=== PATIENT | female | born 1955 | race Caucasian/White ===

== ENCOUNTER 2017-07-27 13:50 | Inpatient (IN) | payer MEDICARE ==
[~2017-07-27] VITALS: Ht 152.4 cm; Wt 40.9 kg
--- NOTE | ~2017-07-27 | PR ---
[place], [place] PROGRESS NOTE NAME: VERÓNICA LOZANO UNIT #: [id number] ROOM: 520 DOCTOR: TESFAYE REDDY MD BIRTHDATE: [birth year] DOS: SUBJECTIVE: The patient is doing fine without any complaints this morning. OBJECTIVE: VITAL SIGNS: Shows pressure 120/62, pulse of 88, respirations 20, temperature 97.6. LUNGS: Clear. HEART: Regular. ABDOMEN: Obese, soft. EXTREMITIES: Without any edema. LUNGS: With a few scattered rhonchi and wheezes still heard. ASSESSMENT AND PLAN: 1. Acute exacerbation of chronic obstructive pulmonary disease. There is definite improvement from yesterday. I appreciate Dr. Bejarano's input, may require a bronchoscopy tomorrow. 2. Acute tracheobronchitis, on antibiotics. Yesterday, she was quite hypoxic. Saturation was only 42 on an ABG. BiPAP was added and seems to have helped significantly. 3. Benign hypertension. Awaiting an echocardiogram for abdominal pain. The patient states that she coughed and developed some discomfort in the abdomen, was most likely musculoskeletal. I will start her on a heating pad. TESFAYE REDDY MD CM:PNTRANS [phone] TESFAYE REDDY MD 07/31/17 0858 interface
--- NOTE | ~2017-07-27 | PR ---
[place], [place] PROGRESS NOTE NAME: VERÓNICA LOZANO UNIT #: [id number] ROOM: 520 DOCTOR: MAXINE ROJAS DO BIRTHDATE: [birth year] DOS: 08/03/2017 SUBJECTIVE: The patient has been noted without any shortness of breath. The patient denies any fever, chills, nausea, vomiting or chest pain. The patient says that the mild wheezing has improved since yesterday. OBJECTIVE: VITAL SIGNS: Temperature 98.6, pulse 84, respiratory rate 20, blood pressure 137/84, pulse ox is 94% on room air. HEENT: Showed no changes. NECK: Supple. CARDIOVASCULAR: S1, S2 audible. LUNGS: Decreased breath sounds at the bases and mild expiratory wheeze, otherwise normal. ABDOMEN: Soft, flat, nontender. EXTREMITIES: No edema. ASSESSMENT: 1. Acute exacerbation of chronic obstructive pulmonary disease with acute tracheobronchitis. Symptoms of nonproductive cough has improved along with shortness of breath. 2. Status post bronchoscopy on 08/02/2017. PLAN: 1. The patient can be discharged to care home facility on Rocephin 1 gram IV every day and Solu-Medrol 40 mg IV b.i.d. 2. Continue supportive care. MAXINE ROJAS DO RHINA JORDAN MD CM:RESHMA [id number] MAXINE ROJAS DO 08/03/17 1302 interface
--- NOTE | ~2017-07-27 | PR ---
[place], [place] PROGRESS NOTE NAME: VERÓNICA LOZANO UNIT #: [id number] ROOM: 520 DOCTOR: TESFAYE REDDY MD BIRTHDATE: [birth year] DOS: SUBJECTIVE: The patient continues to have this incessant cough which is unable to stop and she is unable to bring up any sputum at all. OBJECTIVE: VITAL SIGNS: Graphic trend shows a pressure 135/68, pulse of 94, respirations 22, temperature 98.2. LUNGS: Diminished breath sounds. No wheezes heard this morning. HEART: Regular. ABDOMEN: Obese, soft, nontender. EXTREMITIES: Without any edema. CT of the chest showed emphysematous changes. There was no evidence of any infectious process or tumors. ASSESSMENT AND PLAN: 1. Acute exacerbation of chronic obstructive pulmonary disease. The patient continues to be short of breath, especially exertional, but surprisingly, the bronchospasm seems to have resolved today with the Pulmicort. 2. Acute tracheobronchitis. The patient is unable to cough up any sputum and is possibly from the dextromethorphan that she is getting, so we will change to plain ____ Mucinex. She also may require a bronchoscopy, so that Dr. Bejarano has been consulted. Otherwise, continue same medications. 3. Benign hypertension. Awaiting echocardiogram. Check LV function. TESFAYE REDDY MD CM:PNTRANS [phone] TESFAYE REDDY MD 07/31/17 1229 interface
--- NOTE | ~2017-07-27 | WRIGHTHP ---
[place], [place] PATIENT HISTORY AND PHYSICAL EXAM [id number] UN[facility] #: [id number] ROOM: 520 DOCTOR: ESE BARAHONA MD BIRTHDATE: [birth year] DOS: 07/27/2017 HISTORY OF PRESENT ILLNESS: 1. The patient is a 62-year-old female with a past medical history of significant COPD with previous history of nicotine, smoke dependence. The patient stopped 2 years back. 2. Benign essential hypertension. 3. Hypothyroidism. 4. Mixed hyperlipidemia. 5. History of chronic lower back pains and back surgery. The patient presented to my office with a few days' complaints of increasing shortness of breath, cough with sputum, and wheezing. The patient appeared very weak in the office and 6-minute exercise pulse ox, although did not drop below 95% on pulse oximetry but she remained tachycardic at the heart rate of about 110 beats per minute and also appeared quite short of breath. The patient was admitted to [facility] for treatment of exacerbation of severe underlying chronic obstructive pulmonary disease. There were no complaints of any chest pains. No dizziness or fainting episodes. No other GI or urinary symptoms. REVIEW OF SYSTEMS: LUNGS: Increasing shortness of breath and wheezing. GASTROINTESTINAL: No nausea, vomiting, diarrhea or constipation. CARDIOVASCULAR: No chest pains or palpitations. FAMILY HISTORY: Noncontributory. HOME MEDICATIONS: Include lisinopril 10 mg a day, levothyroxine 50 mcg daily, gabapentin 300 mg 3 times a day, ibuprofen 600 mg every 8 hours as needed. ALLERGIES: Known allergies to SULFA. PHYSICAL EXAMINATION: GENERAL: Alert and oriented x 3, in no visible distress. VITAL SIGNS: Blood pressure 140/78, heart rate 88 beats per minute, breathing 22 times per minute, temperature 98.1 degrees Fahrenheit. HEENT AND NECK: Extraocular movements are intact. Sclerae are anicteric. Oral mucosa is moist and clean. No obvious facial weakness. Neck is supple without any lymphadenopathy. No thyromegaly. No JVD. No carotid arterial bruits. LUNGS: Decreased breath sounds all over and some expiratory wheezing. CARDIOVASCULAR SYSTEM: Heart rate is regular in rate and rhythm. S1 and S2 normally audible. No significant murmur or any other abnormal cardiac sounds. ABDOMEN: Soft, nontender. No obvious organomegaly. Bowel sounds are present. No obvious herniation. EXTREMITIES: Without significant cyanosis or edema. Warm to touch. CENTRAL NERVOUS SYSTEM: Alert and oriented x 3. Cranial nerves II-XII are intact. Speech is normal. The patient is able to move all extremities. Normal muscle strength. Deep tendon reflexes are equal on both sides. Plantars were downgoing. [place], [place] PATIENT HISTORY AND PHYSICAL EXAM NAME: VERÓNICA LOZANO UNIT #: [id number] ROOM: [facility] DOCTOR: ESE BARAHONA MD BIRTHDATE: [birth year] LABORATORY DATA: Normal serum electrolytes. Blood sugar is elevated to 142. Normal CBC except for some leukopenia with white cell count of 4200, normal platelets. Blood gases showed a pH of 7.4, pO2 of 92, saturating 98% on 2 liters of oxygen by nasal cannula. IMPRESSION: 1. The patient with exacerbation of severe underlying chronic obstructive pulmonary disease with acute over chronic respiratory failure. The patient is tachypneic with significant cough and also complains of significant pain in her ribs when coughing. I will start her on some pain medications, give her bronchodilators, corticosteroids, antibiotic and oxygen and get a chest x-ray. 2. Hypothyroidism for which patient continued on thyroid supplements. 3. Benign essential hypertension with controlled blood pressures with treatment. 4. Postherpetic neuralgia with chronic pains, treated with gabapentin. ESE BARAHONA MD CM:HISPHYS:PATIENT HISTORY AND PHYSICAL EXAMINATION [id number] ESE BARAHONA MD 07/28/17 1325 interface
--- NOTE | ~2017-07-27 | PR ---
[place], [place] PROGRESS NOTE NAME: VERÓNICA LOZANO UNIT #: [id number] ROOM: 520 DOCTOR: TESFAYE REDDY MD BIRTHDATE: [birth year] DOS: SUBJECTIVE: The patient was getting a breathing treatment when I saw her. She had almost finished it, appeared to have quite lot of shortness of breath. PHYSICAL EXAMINATION: VITAL SIGNS: Blood pressure is 144/72, pulse of 79, respirations 20 and temperature 96.7. LUNGS: Diminished breath sounds, scattered rhonchi heard. HEART: Regular. ABDOMEN: Obese, soft, nontender. EXTREMITIES: Without any edema. ASSESSMENT AND PLAN: 1. Acute exacerbation of chronic obstructive pulmonary disease, on intravenous steroids and breathing treatments, maximize bronchodilator regimen, add Pulmicort today. Also, check chest CT scan. 2. Acute tracheobronchitis, on antibiotics intravenous. 3. Heavy nicotine abuse. The patient has been a smoker for close to 50 years. 4. Chronic pain from postherpetic neuralgia, controlled on the current dose of medications. TESFAYE REDDY MD CM:PNTRANS [phone] TESFAYE REDDY MD 07/30/17229 interface
--- NOTE | ~2017-07-27 | PR ---
[place], [place] PROGRESS NOTE NAME: VERÓNICA LOZANO UNIT #: [id number] ROOM: 520 DOCTOR: NIKKI GLORIA MD,RHINA BIRTHDATE: [birth year] DOS: 08/01/2017 PULMONARY FOLLOWUP SUBJECTIVE: She has been noted chest symptoms with shortness of breath. The coughing has been noted nonproductive. Wheezing was also noted partially decreased. She denies symptoms of chest pain or any abdominal pain. Denies any ____ of the lower extremity. The patient has been using the BiPAP as advised. OBJECTIVE: VITAL SIGNS: Normal temperature, respiratory rate 20, heart rate 82, blood pressure 118/70 this morning. Pulse ox saturation 98% with 3 liters nasal cannula or BiPAP. HEENT: Showed no new change. NECK: Supple. CARDIOVASCULAR: S1, S2 audible. LUNGS: General reduction in the breath sounds with moderate expiratory wheezing, partially decreased from previous examination. ABDOMEN: Soft, flat, nontender. EXTREMITIES: Shows no edema. IMPRESSION: The patient with acute exacerbation of chronic obstructive pulmonary disease with acute tracheobronchitis, persistent symptoms of nonproductive cough for the patient's with shortness of breath, partially improved since hospitalization. PLAN OF TREATMENT: The patient has been assessed for therapeutic bronchoscopy. Plan to be done tomorrow morning. Risks and benefits of the procedure were discussed with the patient and she was agreeable for the procedure. N.p.o. past midnight status will be achieved. RHINA JORDAN MD CM:PNTRANS [phone] RHINA GLORIA MD 08/01/17 1547 interface
--- NOTE | ~2017-07-27 | PR ---
[place], [place] PROGRESS NOTE NAME: VERÓNICA LOZANO UNIT #: [id number] ROOM: 520 DOCTOR: NIKKI GLORIA MD,RHINA BIRTHDATE: [birth year] DOS: 08/02/2017 SUBJECTIVE: The patient was independently seen and examined with [id number] encounter. The physical examination performed. The labs were reviewed. The decision made for the management of this patient were personally done for today's visit. The patient was planned for bronchoscopy done today, still noted with coughing which has remained severe and nonproductive. Shortness of breath and wheezing has been noted, decreased in the last 24 hours. PHYSICAL EXAMINATION: VITAL SIGNS: Reviewed, shows a normal temperature, respiratory rate 20, heart rate 71, blood pressure 123/74. Pulse oxygen saturation was noted on room air is 94% saturation. LUNGS: Noted with general reduction in breath sounds, expiratory wheezing without any crackles. ABDOMEN: Soft, nontender. LABORATORY DATA: Culture of the sputum from yesterday shows a growth of ____ identification and sensitivity, results were pending. IMPRESSION: The patient with acute exacerbation of chronic obstructive pulmonary disease with acute tracheobronchitis, severe nonproductive cough, suspected mucus impaction. PLAN OF TREATMENT: He will be getting bronchoscopy done today. The note which was done by the medical services manager for today's visit was approved as well. RHINA JORDAN MD CM:PNTRANS [phone] RHINA GLORIA MD 08/03/17100 interface
--- NOTE | ~2017-07-27 | PR ---
[place], [place] PROGRESS NOTE NAME: VERÓNICA LOZANO UNIT #: [id number] ROOM: 520 DOCTOR: ESE BARAHONA MD BIRTHDATE: [birth year] DOS: 08/01/2017 SUBJECTIVE: The patient is still short of breath and wheezing despite of treatment with antibiotics and corticosteroids. PHYSICAL EXAMINATION: GENERAL APPEARANCE: The patient is alert and oriented x 3, in no visible distress. VITAL SIGNS: Blood pressure 125/56, heart rate 80 beats per minute, breathing 20 times per minute, temperature 98.1 degrees Fahrenheit. HEENT AND NECK: Exam within normal limits. CARDIOVASCULAR SYSTEM: Heart rate is regular in rate and rhythm. S1 and S2 normally audible. LUNGS: Showing decreased breath sounds and expiratory wheezing. ABDOMEN: Soft, nontender. No obvious organomegaly. Bowel sounds are present. EXTREMITIES: Without significant cyanosis or edema. IMPRESSION: 1. Exacerbation of severe underlying chronic obstructive pulmonary disease with wheezing and shortness of breath, is going for a bronchoscopy with Dr. Bejarano tomorrow. 2. Benign essential hypertension with controlled blood pressures. 3. Hypothyroidism, treated with supplements. 4. Benign essential hypertension with controlled blood pressures. 5. Postherpetic neuralgia of the right lower rib pains, treated with gabapentin. ESE BARAHONA MD CM:PNTRANS [phone] ESE BARAHONA MD 08/01/17 2343 interface
--- NOTE | ~2017-07-27 | CON ---
[place], [place] REPORT OF CONSULTATION NAME: VERÓNICA LOZANO UNIT #: [id number] ROOM: 520 DOCTOR: RHINA GUERRIER MD BIRTHDATE: [birth year] DOS: 07/30/2017 PULMONARY CONSULTATION EVALUATION CONSULTATION REQUESTED BY: Dr. Nikki Freitas. REASON FOR CONSULTATION: For the assessment of ongoing symptoms of shortness breath and cough, for possible consideration of bronchoscopy. HISTORY OF PRESENT ILLNESS: This is a 62-year-old female who has been admitted to the hospital under care of Dr. Nikki Freitas since 07/27/2017. The patient reported symptoms of increased shortness of breath that has started with coughing with sputum expectoration and wheezing. She denies symptoms of chest pain. The patient denies symptoms of hemoptysis. The patient was still noted with ongoing shortness of breath and cough has been noted, nonproductive. She does have symptoms of wheezing at times. She has been currently treated for the acute exacerbation of COPD under care of Dr. Nikki Freitas. The patient has not been showing any positive improvement of respiratory symptoms. I was consulted to assess the patient for that reason. REVIEW OF SYSTEMS: CONSTITUTIONAL: Fatigue and tiredness were noted without symptoms of fever or chills. EYES: Denies any burning, redness, or tenderness. EARS, NOSE, THROAT: No sore throat, hoarseness, otalgia, postnasal drainage or epistaxis. CARDIOVASCULAR: Denies anginal pain, edema or pain of the lower extremities. GASTROINTESTINAL: Denies dysphagia, nausea, vomiting, diarrhea, abdominal pain, hematemesis, melena, or hematochezia. SKIN: Denies lesions or rashes. GENITOURINARY: No dysuria, suprapubic pain, hematuria. MUSCULOSKELETAL: Denies acute joint pain, redness, or tenderness. SKIN: No lesions or rashes. CENTRAL NERVOUS SYSTEM: Remaining systems were reviewed with the patient, they were noted all negative. PAST MEDICAL HISTORY: The patient was known with history of: 1. COPD. 2. Essential hypertension. 3. Hypothyroidism. 4. Mixed hyperlipidemia. 5. Chronic lower back pain. SOCIAL HISTORY: The patient stated that she is and has 2 children. Smoking since teens, a pack of cigarettes per day until 2014. Denies any history of occupation-related pulmonary exposure. Denies history of alcohol or illicit drug use. PAST SURGICAL HISTORY: 1. Partial hysterectomy. [place], [place] REPORT OF CONSULTATION NAME: VERÓNICA LOZANO UNIT #: [id number] ROOM: [facility] DOCTOR: RHINA GUERRIER MD BIRTHDATE: [birth year] 2. Surgery of the lower back and the neck. FAMILY HISTORY: Father at 64 years old, complications of myocardial infarction. Mother at the age of 62 years, complications of myocardial infarction as well. HOME MEDICATIONS: 1. Lisinopril 20 mg daily. 2. Citalopram 40 mg daily. 3. Norvasc 10 mg daily. 4. Amitriptyline 50 mg at bedtime. 5. Synthroid 50 mcg daily. 6. Protonix 40 mg daily. 7. Synthroid 50 mcg p.o. daily. 8. Neurontin 300 mg p.o. q. 8 hours. 9. Lyrica 50 mg p.o. b.i.d. DRUG ALLERGY HISTORY: ALLERGY TO SULFA DRUGS. PHYSICAL EXAMINATION: GENERAL: A 62-year-old female who has been currently noted without any acute distress, noted with mild shortness of breath at rest. Height was noted as 5 feet, weight of 90 pounds, BMI 17.6. VITAL SIGNS: Shows normal temperature since admission. Respiratory rate ranging between 20-24, heart rate 80-107, blood pressure 126/78 to 153/81. Pulse oxygen saturation noted on room air 93% saturation. HEENT: Shows head was atraumatic. Eyes: No icterus. NECK: Supple. CARDIOVASCULAR: S1, S2 is audible. LUNGS: The patient was noted without any crackles. Expiratory wheezing was present. ABDOMEN: Soft, nontender. EXTREMITIES: The patient was noted without any edema, clubbing or cyanosis. CENTRAL NERVOUS SYSTEM: The patient was noted without any focal deficit. DIAGNOSTIC AND LABORATORY DATA: The CT scan of the chest that was done without contrast was noted with finding of centrilobular emphysema with hyperinflation without any acute pulmonary infiltration or any abnormal pulmonary nodules. The chest x-ray that was done on 07/28/2017 was essentially noted with similar finding hyperinflation of COPD. BMP on 07/28/2017, glucose 142. BUN and creatinine of the labs were normal. CBC on 07/28/2017, WBC count 4.2; remaining CBC was normal. Arterial blood gas with 2 liters canula on admission pH of 7.42, pCO2 of 40, pO2 of 92.0. IMPRESSION: 1. The patient who has been currently admitted to the hospital noted with symptoms and findings of acute exacerbation of chronic obstructive pulmonary disease, acute tracheobronchitis, inability to expectorate sputum effectively, still noted with shortness of breath. 2. Past history of nicotine abuse until 2 years ago. [place], [place] REPORT OF CONSULTATION NAME: VERÓNICA LOZANO UNIT #: [id number] ROOM: [facility] DOCTOR: NIKKI GLORIA MD,RHINA BIRTHDATE: [birth year] 3. Acute bacterial bronchitis, treated with antibiotics. PLAN OF TREATMENT: The patient has been getting the Mucinex and noted nonproductive cough with still noted short of breath. The changes in the Solu-Medrol will be done including Solu-Medrol dose to 40 mg q. 6 hours initially and then gradual reduction. Once the patient's overall respiratory status stabilizes, certainly bronchoscopy will be considered. Flutter valve will be added to help expectorate the sputum. We did send sputum for Gram stain and culture as well. Additional treatment changes will be done based on the progression of the illness. Obtain another arterial blood gas because of mild resting distress. We will reassess the patient's oxygenation in the ventilatory status. Anxiolytic will be added to the treatment as well. Thanks for allowing me to participate in the care of this patient. RHINA JORDAN MD CM:CONSTR:REPORT OF CONSULTATION 1432 07/31/17 1411 interface
--- NOTE | ~2017-07-27 | PROC NOTE ---
[place], [place] PROCEDURE NOTE NAME: VERÓNICA LOZANO UNIT #: [id number] ROOM: [facility] DOCTOR: NIKKI GLORIA MD,RHINA BIRTHDATE: [birth year] DOS: 08/02/2017 PREOPERATIVE DIAGNOSES: Persistent severe nonresolving cough, maximal medical therapy with wheezing intermittently as well. POSTOPERATIVE DIAGNOSIS: Severe impaction and mucus plug cleared from endobronchial tree bilaterally. FINDINGS: 1. Acute tracheobronchitis. 2. No endobronchial obstructive lesions. COMPLICATIONS: None. BLOOD LOSS: None. PROCEDURE DESCRIPTION: Informed consent obtained from the patient. The patient was brought to the OR and placed in supine position. Conscious sedation was administered by the Anesthesia Department. After achieving appropriate sedation, airway introduced into the mouth. Bronchoscope advanced into the airway into laryngeal area. Epiglottis and vocal cords were seen. Vocal cords were moving symmetrically with the movements. Bronchoscope advanced through vocal cord and tracheal lumen. Tracheal lumen was identified and noted with moderate amount of thick mucoid secretion, suctioned out with the help of normal saline wash without difficulty. All the secretions suctioned out with the help of normal saline wash for this patient. Right upper, right middle, right lower, left upper, and lingular lower lobe bronchi were all examined. All the secretions were cleared out with the removal of the mucus plug using normal saline. The procedure was well tolerated by the patient. Postoperative findings will be discussed with the patient once the patient recovers the effects of acute sedation. RHINA JORDAN MD CM:PROCNOTE:PROCEDURE NOTE [phone] RHINA GLORIA MD
--- NOTE | ~2017-07-27 | PR ---
[place], [place] PROGRESS NOTE NAME: VERÓNICA LOZANO UNIT #: [id number] ROOM: 520 DOCTOR: MAXINE ROJAS DO BIRTHDATE: [birth year] DOS: 08/02/2017 This is a pulmonary service for Dr. Bejarano. SUBJECTIVE: The patient has been noted without any shortness of breath. The patient has been having dry cough, nonproductive. There is mild wheezing, which has been improved since yesterday. The patient denies any current complaints. OBJECTIVE: VITAL SIGNS: Normal temperature, respiratory rate 20, heart rate of 76, blood pressure of 130/53, pulse ox of 98% on 3 liters nasal cannula or BiPAP. HEENT: Showed no changes. NECK: Supple. CARDIOVASCULAR: S1, S2 audible. LUNGS: Sound general reduction in breath sounds with mild expiratory wheeze, partially decreased from previous examination. ABDOMEN: Soft, flat, nontender. EXTREMITIES: Show no edema. IMPRESSION: Acute exacerbation of chronic obstructive pulmonary disease with acute tracheobronchitis, persistent symptoms of nonproductive cough for patient with shortness of breath, partially improved since hospitalization. PLAN OF TREATMENT: 1. Bronchoscopy today showed mucus plug and tracheobronchitis. 2. Continue ceftriaxone 1 gram every day, Solu-Medrol and DuoNeb treatments, continue Pulmicort q. 12 hours and Mucinex supportive care. MAXINE ROJAS, RHINA BEJARANO MD CM:PNTRANS [id number] MAXINE ROJAS DO 08/02/17 1617 interface
--- NOTE | ~2017-07-27 | PR ---
[place], [place] PROGRESS NOTE NAME: VERÓNICA LOZANO UNIT #: [id number] ROOM: 520 DOCTOR: ESE BARAHONA MD BIRTHDATE: [birth year] DOS: 08/02/2017 The patient is breathing slightly better after bronchoscopy but still complains of wheezing. VITAL SIGNS: Blood pressure 132/80, heart rate 94 beats per minute, breathing 25 times per minute. On lung auscultation, expiratory wheezing and on general physical exam, generalized weakness, otherwise, standard exam. IMPRESSION: 1. The patient with exacerbation of severe underlying chronic obstructive pulmonary disease with wheezing, underwent bronchoscopy this morning with removal of thick mucus secretions. I will refer to assisted for continued treatment. The patient appears to have achieved maximum benefit from the stay and ____ continues to follow the patient. 2. Benign essential hypertension with normal blood pressure. 3. Hypothyroidism treated with Synthroid. 4. Post herpetic neuralgia with right lower rib pains, controlled with gabapentin. ESE BARAHONA MD CM:PNTRANS [phone] ESE BARAHONA MD 08/02/17 2248 interface
--- NOTE | ~2017-07-27 | DS ---
[place], [place] DISCHARGE SUMMARY NAME: [facility]NICA [facility]ZANO [id number] UNIT #: [id number] ROOM: 520 DOCTOR: ESE BARAHONA MD BIRTHDATE: [birth year] DOS: 08/03/2017 The patient is feeling better, breathing better today. OBJECTIVE: VITAL SIGNS: Blood pressure 137/84, heart rate of 84 beats per minute, breathing 20 times per minute, afebrile. GENERAL APPEARANCE: The patient is alert and oriented x 3, in no visible distress. HEENT AND NECK: Extraocular movements are intact. Sclerae are anicteric. Oral mucosa is moist and clean. No obvious facial weakness. Neck is supple without any lymphadenopathy. No thyromegaly. No JVD. No carotid arterial bruits. LUNGS: Expiratory wheezing has improved on lung auscultation. CARDIOVASCULAR SYSTEM: Heart rate is regular in rate and rhythm. S1 and S2 normally audible. No significant murmur or any other abnormal cardiac sounds. ABDOMEN: Soft, nontender. No obvious organomegaly. Bowel sounds are present. No obvious herniation. EXTREMITIES: Without significant cyanosis or edema. Warm to touch. CENTRAL NERVOUS SYSTEM: Alert and oriented x 3. Cranial nerves II-XII are intact. Speech is normal. The patient is able to move all extremities. Normal muscle strength. Deep tendon reflexes are equal on both sides. Plantars were downgoing. IMPRESSION: 1. The patient with acute over chronic respiratory failure with advanced centrilobular emphysema, improving with treatment. 2. Exacerbation of chronic obstructive pulmonary disease, improving with treatment. 3. The patient is status post bronchoscopy. 4. Postherpetic neuralgia with pain in the right lower ribs, chronic. 5. Hypothyroidism, treated with thyroid supplements. 6. Benign essential hypertension. Blood pressures monitored and controlled. 7. Mixed hyperlipidemia. 6. Chronic lower back pain with history of back surgery. The patient presented with increased shortness of breath and hypoxemia, wheezing and cough and was diagnosed with having exacerbation of severe underlying chronic obstructive pulmonary disease. The patient was treated with corticosteroids, antibiotics, oxygen and her breathing is improving, especially after bronchoscopy she got yesterday from Dr. Bejarano. Case was discussed with Dr. Bejarano and she is going to intermediate facility for continued antibiotics, oxygen and corticosteroids and Dr. Bejarano will adjust antibiotics based on culture results when they become available. Sputum culture results when they become available. Hypothyroidism, which is being replaced with supplements. Benign essential hypertension. Blood pressure is controlled with treatment. Postherpetic neuralgia and chronic lower back pains controlled with gabapentin. [place], [place] DISCHARGE SUMMARY NAME: VERÓNICA LOZANO UNIT #: [id number] ROOM: Formerly named [facility] DOCTOR: BROOKLYN CORNELIUS,ESE Fink BIRTHDATE: [birth year] Severe underlying chronic obstructive pulmonary disease. The patient does not smoke cigarettes anymore. LABORATORY DATA: Sputum cultures growing yeast. Echocardiogram showing no significant abnormality. DISCHARGE MANAGEMENT: Medrol Dosepak as directed, IV Rocephin 1 gram daily for a week. Consult physical therapy. DuoNebs every 4 hours, Pulmicort 0.5 mg b.i.d. with the nebulizer, lisinopril 20 mg a day, citalopram 40 mg a day, amlodipine 10 mg a day, Protonix 40 mg a day, amitriptyline 50 mg daily, levothyroxine 50 mcg daily, gabapentin 300 mg 3 times a day, Tylenol 1 gram t.i.d. p.r.n., ibuprofen 600 mg every 8 hours p.r.n. pain, Xanax 0.25 mg every 6 hours p.r.n. for anxiety. ESE BARAHONA MD CM:KIMBERLYN [id number] ESE BARAHONA MD 08/03/17 1547 interface
--- NOTE | ~2017-07-27 | PR ---
[place], [place] PROGRESS NOTE NAME: VERÓNICA LOZANO UNIT #: [id number] ROOM: 520 DOCTOR: NIKKI GLORIA MD,RHINA BIRTHDATE: [birth year] DOS: 07/31/2017 SUBJECTIVE: She has been noted somewhat reduction in the respiratory symptom yesterday, still noted the cough with small amount of sputum expectoration this morning. Denies symptoms of hemoptysis. There were no symptoms of chest pain. OBJECTIVE: VITAL SIGNS: Normal temperature, respiratory rate 20, heart rate 54, blood pressure 132/71 to 127/74. The pulse oxygen saturation on 2 liters nasal cannula 93% saturation. BiPAP was 98% saturation. HEENT: No new change. NECK: Supple. CARDIOVASCULAR: S1, S2 audible. LUNGS: Noted with general reduction of breath sounds, expiratory wheezing, partially decreased from yesterday. ABDOMEN: Soft, nontender. LABORATORY DATA: Arterial blood gases noted as a venous blood gas. IMPRESSION: The patient with acute respiratory distress. The patient with acute exacerbation of chronic obstructive pulmonary disease and acute tracheobronchitis, currently responding to the treatment slowly still noted nonproductive cough and shortness of breath and wheezing. PLAN AND MANAGEMENT: Continue current dose of corticosteroids, bronchodilators, antibiotic use of the BiPAP. Bronchoscopy planned to be done, the patient based on the availability of schedule in the next couple of days. RHINA JORDAN MD CM:PNTRANS [phone] RHINA GLORIA MD 08/01/17 0655 interface
--- NOTE | ~2017-07-27 | EKG ---
[place], [place] ELECTROCARDIOGRAM REPORT NAME: VERÓNICA LOZANO UNIT #: [id number] ROOM: [facility] DOCTOR: NIKKI GLORIA MD,RHINA BIRTHDATE: [birth year] DOS: 08/01/2017 ELECTROCARDIOGRAM Normal sinus rhythm was noted with a heart rate of 97 beats per minute. There were no changes of acute ischemia. RHINA JORDAN MD CM:EKGRPT:ELECTROCARDIOGRAM REPORT [id number] RHINA GLORIA MD
--- NOTE | ~2017-07-27 | PR ---
[place], [place] PROGRESS NOTE NAME: VERÓNICA LOZANO UNIT #: [id number] ROOM: 520 DOCTOR: NIKKI GLORIA MD,RHINA BIRTHDATE: [birth year] DOS: 08/03/2017 SUBJECTIVE: The patient was seen and examined on 08/03/2017 with [id number] encounter. The labs were personally reviewed. Physical examination performed. History was confirmed. The changes in the treatment which were made for the patient was personally done for today's visit. The patient has a bronchoscopy done yesterday with significant reduction and improvement in respiratory symptoms noted with shortness of breath, coughing and wheezing. The patient tolerated the procedure very well. PHYSICAL EXAMINATION: VITAL SIGNS: Reviewed, was noted afebrile status, respiratory rate 20, heart rate 84, blood pressure 132/84, pulse oxygen saturation of the patient noted on room air 94% saturation. CHEST: Auscultation of the chest noted with continued improvement in the wheezing. There were no crackles. ABDOMEN: Soft, nontender. LABORATORY DATA: Primary culture of the bronchial washing was noted with moderate growth of yeast. The Gram stain showed many white blood cells with many epithelial cells, budding yeast, and gram-positive cocci. IMPRESSION: Progressive resolution of acute exacerbation of chronic obstructive pulmonary disease with acute tracheobronchitis and other problems has been noted gradually. PLAN OF TREATMENT: The patient will be considered for possible discharge to the nursing facility for rehabilitation and continuation therapy with intravenous corticosteroids and the antibiotics as Rocephin. The discharge planning was discussed with Dr. Glasgow. The note which was done by the medical technologist hematology for today's visit, was personally approved. RHINA JORDAN MD CM:PNTRANS [phone] RHINA GLORIA MD 08/04/17705 interface
[~2017-07-27 13:50] MED LIST: LISINOPRIL5 MG PO; NEURONTIN300 MG PO; PERCOCET 325 MG1 TA2 PO; SYNTHROID25 MCG PO; ZOVIRAX800 MG PO
[2017-07-27 14:00] VITALS: BP 170/100
--- NOTE | 2017-07-27 14:00 | NUR ---
A 62, admitted to , under the services of Dr. BROOKLYN CORNELIUS,ESE Fink with a diagnosis of ACUTE RESPIRATORY FAILURE, COPD. Chief complaint is SOB, COUGH X4 DAYS. Patient arrived via wheel chair from [place]. Monitor applied. Initial assessment completed. Vital signs taken and recorded. DR. BROOKLYN CORNELIUS,ESE Fink notified of admission to the unit. Orders received. See assessment for past medical history, medications and allergies. Patient and/or family oriented to unit. [facility] reviewed. Clothing/patient valuable form completed. MINA IRWIN
--- NOTE | 2017-07-27 14:15 | NUR ---
CALL PLACED TO DR BARAHONA REGARDING PT'S STATUS, PT IS WHEEZING AUDIBLY, SOB AT REST, RESP 32. ORDERS RECEIVED AT THIS TIME.
--- NOTE | 2017-07-27 14:30 | NUR ---
MED REC NOT UPDATED AT THIS TIME, PT STATES SHE HAS RECENTLY MOVED FROM [facility] AND SHE IS IN THE PROCESS OF GETTING EVERYTHING SWITCHED SO HER PHARMACY DOES NOT HAVE ALL HER MEDS. ASKED THE SISTER WHO IS HERE VISITING IF SHE WOULD CALL WHEN SHE GETS HOME TO PROVIDE LIST.
[2017-07-27] MEDS ORDERED: ADVAIR HFA 115-12 GM INH (14:34)
[2017-07-27] MEDS ORDERED: PROAIR HFA8.5 GM INH (14:34)
[2017-07-27 16:00] VITALS: BP 141/78
--- NOTE | 2017-07-27 16:20 | NUR ---
DR BARAHONA HERE TO SEE PT AT THIS TIME AND UPDATED ON PT'S STATUS.
[2017-07-27 17:27] LABS: ABG HCO3 26.1 mmol/l (22-26); ABG O2 SATURATION 97.9 % (95-97); ARTERIAL BLOOD GAS PCO2 40.1 mmHg (35-45); ARTERIAL BLOOD GAS PH 7.427 (7.35-7.45)
[2017-07-27 20:00] VITALS: BP 139/69
[2017-07-28] VITALS: BP 164/87
[2017-07-28 06:46] LABS: HEMATOCRIT 42.4 % (37.0-47.0); LYMPH # 0.8 10*3/uL (1.3-4.4); LYMPH % 18.9 % (27.0-41.0); MEAN PLATELET VOLUME 9.7 fl (9.6-12.3); MONO # 0.2 10*3/uL (0.1-1.0); NEUT # 3.2 10*3/uL (2.3-7.9); NEUT % 76.6 % (47.0-73.0); PLATELET COUNT AUTOMATED 238 10*3/uL (130-400); RED BLOOD COUNT 4.82 10*6/uL (4.10-5.10); RED CELL DISTRI WIDTH 13.6 % (0-14.5); WHITE BLOOD COUNT 4.2 10*3/uL (4.8-10.8)
[2017-07-28 07:01] LABS: BUN 11 mg/dl (7-24); CHLORIDE 105 mmol/L (98-107); CREATININE 0.79 mg/dL (0.55-1.02); POTASSIUM 4.2 mmol/L (3.5-5.1); SODIUM 140 mmol/L (136-145)
[2017-07-28 08:00] VITALS: BP 130/64
--- NOTE | 2017-07-28 08:12 | NUR ---
Shift chart check completed.
--- NOTE | 2017-07-28 09:00 | NUR ---
[facility] Office in to talk to patient. Patient states lives at home with sister. There are few steps in the home. Physician: lucy Pharmacy: [facility] Home health services: none Patient's level of ADLs: INDEPENDENT Patient has working utilities: all working DME: none Follow-up physician's appointment after d/c: prefers to make own follow up appointment Does patient want to access PORTAL?: no Discharge plan discussed with patient, patient lives at home with her sister, she is independent in adls and ambulation, no home oxygen or nebulizer, patient states she will be going back home when able, discussed with her VNA and she refused any services at this time. LINDA MORRIS
--- NOTE | 2017-07-28 09:39 | NUR ---
PHYSICAL THERAPY PAtient reports she is (i) with mobility throughout room. PAtient reports only difficulty at this time is breathing. PAtient has severe dyspneia at rest. Will d/c PT orders at this time as patient is (I) with mobility. Thank you for this referral. mariah Patel,PT
--- NOTE | 2017-07-28 09:56 | NUR ---
MEDICATED WITH PO MOTRIN FOR PAIN IN HER ABDOMEN RATED 10/10
--- NOTE | 2017-07-28 09:56 | NUR ---
PATIENT MEDICATED WITH PO MOTRIN FOR PAIN IN HER RIGHT SIDE RATED 10/10
--- NOTE | 2017-07-28 10:56 | NUR ---
PATIENT STATES MEDICATION NOT REALLY EFFECTIVE. WILL NOTIFY DR BARAHONA
[2017-07-28 12:00] VITALS: BP 140/78
[2017-07-28] MEDS ORDERED: NEXIUM40 MG PO (15:12)
[2017-07-28] MEDS ORDERED: PRAVASTATIN SOD40 MG PO (15:12)
[2017-07-28] MEDS ORDERED: AMITRIPTYLINE50 MG PO (15:16)
[2017-07-28] MEDS ORDERED: LYRICA50 M1 PO (15:16)
[2017-07-28] MEDS ORDERED: FOSINOPRIL SODI20 MG PO (15:17)
[2017-07-28] MEDS ORDERED: AMLODIPINE BESY10 MG PO (15:17)
[2017-07-28] MEDS ORDERED: MELOXICAM15 MG PO (15:17)
[2017-07-28] MEDS ORDERED: CELEXA40 MG PO (15:18)
[2017-07-28] MEDS ORDERED: BENZONATATE100 M1 PO (15:19)
--- NOTE | 2017-07-28 15:20 | NUR ---
MEDS VERIFIED WITH MEDS FROM HOME.
[2017-07-28 16:00] VITALS: BP 138/58; BP 149/78
--- NOTE | 2017-07-28 16:49 | NUR ---
PATIENT MEDICATED WITH PO NORCO FOR PAIN IN HER ABDOMEN RATED 10/10 IN HER RIGHT SIDE AND ABDOMEN
[2017-07-28 20:00] VITALS: BP 127/66
[2017-07-29] VITALS: BP 144/72
[2017-07-29 08:00] VITALS: BP 130/74
[2017-07-29 12:00] VITALS: BP 134/79
[2017-07-29 16:00] VITALS: BP 122/57
--- NOTE | 2017-07-29 16:38 | NUR ---
PT RESTING IN BED, NO DISTRESS NOTED. WILL MONITOR
[2017-07-29 20:00] VITALS: BP 136/67
--- NOTE | 2017-07-29 20:00 | NUR ---
PATIENT SITTING IN CHAIR, VERY ANXIOUS. PATIENT COMPLAINS OF DRY COUGH AND THAT HER RIBS ARE GETTING SORE FROM COUGHING. PATIENT WITH WHEEZES IN ALL LUNG WEI. PATIENT STATES THAT SHE HAS SOME PAIN IN HER RIGHT RIBS FROMFROM HAVING SHINGLES A YEAR AGO. HEPLOCK INTACT IN RIGHT WRIST. NO EDEMA NOTED.
[2017-07-30] VITALS: BP 135/68
[2017-07-30 04:00] VITALS: BP 135/68
--- NOTE | 2017-07-30 04:04 | NUR ---
24 HR chart check completed.
[2017-07-30 08:00] VITALS: BP 153/81
--- NOTE | 2017-07-30 09:28 | NUR ---
dr johnston notified of consult
--- NOTE | 2017-07-30 09:42 | NUR ---
PT REQUESTED AND GIVEN NORCO FOR C/O RIGHT SIDE RIB PAIN AND BACK PAIN . PT RATES PAIN 07/06. WILL MONITOR . CALL LIGHT WITHIN REACH
[2017-07-30 12:00] VITALS: BP 126/78
--- NOTE | 2017-07-30 12:00 | NUR ---
pt states that [place] helped. will monitor
[2017-07-30 15:38] LABS: ABG BASE EXCESS 1.3 mmol/L (-2.0-2.0); ABG HCO3 26.2 mmol/l (22-26); ABG O2 SATURATION 78.2 % (95-97); ARTERIAL BLOOD GAS PH 7.39 (7.35-7.45); ARTERIAL BLOOD GAS PO2 42.9 mmHg (80-90)
--- NOTE | 2017-07-30 15:41 | NUR ---
pt requested and given norco for c/o rib and back pain. pt rates pain 05/06/ will monitor
--- NOTE | 2017-07-30 15:45 | NUR ---
DR JORDAN NOTIFIED OF [facility] NEW ORDERS RECIEVED
[2017-07-30 16:00] VITALS: BP 137/64
--- NOTE | 2017-07-30 19:43 | NUR ---
PT MEDICATED WITH XANAX FOR ANXIETY. WILL MONITOR
[2017-07-30 20:00] VITALS: BP 131/72
--- NOTE | 2017-07-30 20:29 | NUR ---
PT PLACED ON BIPAP
--- NOTE | 2017-07-30 21:00 | NUR ---
PATIENT LYING IN BED, COMPLAINS OF PAIN IN HER RIGHT SIDE. BOWEL SOUNDS ARE HYPOACTIVE AND STATES HAS NOT HAD BM IN SEVERAL DAYS. ABDOMEN IS DISTENDED, TENDER AND SOFT. PATIENT SEEN BY DR JORDAN TODAY, BIPAP INTACT, VOICES NO COMPLAINTS WHILE WEARING.
[2017-07-31] VITALS: BP 119/66
--- NOTE | 2017-07-31 00:06 | NUR ---
24 HR chart check completed.
--- NOTE | 2017-07-31 02:42 | NUR ---
PATIENT WITH BIPAP INTACT ALL EVENING. PATIENT RESTING COMFORTABILY. HAS SLEPT ALL NIGHT THUS FAR.
[2017-07-31 04:00] VITALS: BP 120/62
--- NOTE | 2017-07-31 07:58 | NUR ---
Shift chart check completed.
[2017-07-31 08:00] VITALS: BP 127/74
--- NOTE | 2017-07-31 09:17 | NUR ---
PT WAS INSTRUCTED ON FLUTTER. PT TOLERATED WELL. PT CAN DO ON HER OWN
--- NOTE | 2017-07-31 10:23 | NUR ---
PATIENT MEDICATED WITH PO NORCO FOR PAIN 10/10 IN HER RIGHT SIDE/ABDOMEN
--- NOTE | 2017-07-31 11:20 | NUR ---
PATIENT STATES MEDICATION EFFECTIVE PAIN NOW 07/06
[2017-07-31 12:00] VITALS: BP 132/70
--- NOTE | 2017-07-31 13:00 | NUR ---
IV started LEFT ARM with #22 protective cath after 1 attempts. Site prepped with Chloroprep. Sterile dressing applied. Patient tolerated procedure well. PACO SHARMA
--- NOTE | 2017-07-31 14:30 | NUR ---
PATIENT MEDICATED WITH PO NORCO FOR PAIN IN HER BACK AND ABDOMEN 09/05
--- NOTE | 2017-07-31 15:30 | NUR ---
PATIENT STATES MEDICATION EFFECTIVE
[2017-07-31 16:00] VITALS: BP 130/64
[2017-07-31 20:00] VITALS: BP 140/71
[2017-08-01] VITALS: BP 146/84
--- NOTE | 2017-08-01 00:58 | NUR ---
24 HR chart check completed.
--- NOTE | 2017-08-01 01:00 | NUR ---
24 HR chart check completed.
--- NOTE | 2017-08-01 03:44 | NUR ---
PATIENT LYING IN BED ON RIGHT SIDE WITH BIPAP INTACT. RESPIRATIONS ARE EASY. NO S/S OF DISTRESS. PATIENT WITH AZIZ CONSULT. SPUTUM FOR CULTURE WAS SENT TO LAB. PATIENT HAS RHONCHI WITH EXPIRATORY WHEEZES. PATIENT ANXIOUS AT TIMES, ABD DISTENDED.
[2017-08-01 04:00] VITALS: BP 144/82
--- NOTE | 2017-08-01 07:39 | NUR ---
Shift chart check completed.
[2017-08-01 08:00] VITALS: BP 118/70
[2017-08-01 09:26] LABS: ACT PARTIAL THROMBO TIME 21.5 SECONDS (20.8-31.5); INTERNATIONAL NORM RATIO 0.9 (2.0-3.5)
[2017-08-01 12:00] VITALS: BP 128/73
--- NOTE | 2017-08-01 13:29 | NUR ---
PATIENT MEDICATED WITH PO NORCO FOR PAIN IN BACK/ABDOMEN RATED 10/10
--- NOTE | 2017-08-01 14:29 | NUR ---
PATIENT STATES MEDICATION EFFECTIVE
[2017-08-01 16:00] VITALS: BP 125/56
--- NOTE | 2017-08-01 18:31 | NUR ---
PATIENT MEDICATED WITH PO NORCO FOR PAIN 10/10 IN HER ABDOMEN AND BACK
[2017-08-01 20:00] VITALS: BP 128/62
--- NOTE | 2017-08-01 21:47 | NUR ---
Medicated with Xanax po prn for anxiety and help with sleep. Will monitor effectiveness. Call light within reach.
--- NOTE | 2017-08-01 22:50 | NUR ---
Patient resting quietly in bed with eyes closed. Xanax effective. Will continue to monitor. Call light within reach.
--- NOTE | 2017-08-01 23:21 | NUR ---
PT PLACCED ON BIPAP POST TX
[2017-08-02] VITALS (8 sets, daily range): BP systolic 114–144; BP diastolic 53–91
--- NOTE | 2017-08-02 00:29 | NUR ---
24 HR chart check completed.
--- NOTE | 2017-08-02 07:45 | NUR ---
TO OR VIA BED.
--- NOTE | 2017-08-02 09:58 | NUR ---
POST BRONCH REPORT RECEIVED FROM BRIGITTE MATTSON IN SURGERY.
--- NOTE | 2017-08-02 10:20 | NUR ---
RETURNED FROM OR.
--- NOTE | 2017-08-02 11:05 | NUR ---
PER DR BARAHONA, PT WILL NEED IV ATB AND RESP STATUS NOT WELL ENOUGH TO GO HOME. REC SNF PLACEMENT. SPOKE WITH PT AND HER SISTER. CHOOSES [facility]. DC DIRECTOR OF GOLF WILL MAKE REFERRAL.
--- NOTE | 2017-08-02 11:30 | NUR ---
PATIENT MEDICATED WITH NORCO FOR RIB PAIN FROM COUGHING.
--- NOTE | 2017-08-02 11:41 | NUR ---
Contacted Mayda at [facility] and faxed referral for IV ATB and respiratory therapy. Explained patient will be ready for discharge tomorrow 08/03/17. Waiting on acceptance.
--- NOTE | 2017-08-02 12:30 | NUR ---
PATIENT STATES SHE DID GET SOME RELIEF FROM NORCO.
--- NOTE | 2017-08-02 15:02 | NUR ---
Patient has been accepted to [facility] and can go when medically stable for discharge. Hospital exemption completed online in [employer] system.
--- NOTE | 2017-08-02 19:30 | NUR ---
PT. ALERT AND ORIENTED X 3. WHEEZE AUSCULTATED ON EXPIRATION BILATERALLY, PT. DENIES SOB. S1S2, PPP, NO EDEMA, PT. DENIES CP. PT. STATES INCONTINENCE, BOWEL SOUNDS NORMOACTIVE X 4 QUADS. URINARY FREQUENCY. PT. STATES GENERALIZED WEAKNESS. CALL LIGHT WITHIN REACH, BED IN LOWEST POSITION, WHEELS LOCKED.
[2017-08-03] VITALS: BP 128/70
[2017-08-03 08:00] VITALS: BP 137/84
[2017-08-03] MEDS ORDERED: MEDROL DOSEPAK4 MG PO (09:08)
--- NOTE | 2017-08-03 10:25 | NUR ---
In to see patient, explained she is being discharged today to go to [facility]. She stated she would like to have lunch here at the hospital first and then she will try to reach her sister for transportation. Will check back with her shortly.
[2017-08-03 12:00] VITALS: BP 140/80
--- NOTE | 2017-08-03 13:32 | NUR ---
Patient stated her sister is going to transport her to [facility] around 2:30 PM. Notified maría elena at [facility].
--- NOTE | 2017-08-03 14:05 | NUR ---
Discharge instructions reviewed with patient/family. Patient receptive and verbalizes understanding. Follow-up care arranged. Written instructions given to patient/family. CLAUDINE BREWSTER
--- NOTE | 2017-08-03 14:05 | NUR ---
PATIENT TRANSFERRED OFF FLOOR VIA WHEEL CHAIR BY PA.
[2017-08-03 15:06] LABS: ACID FAST SMEAR Negative (.); ACID FAST SPEC PROCESSING Concentration (.)
[2017-08-08 15:07] LABS: ORGANISM ID, MOLD Final report (.)
== END 2017-08-03 14:08 | disposition other institution (70) | DRG 189 ==
LOC: 5E 13:50
PROVIDERS: Internal Medicine Critical Care Medicine; ADMIT Internal Medicine
PROC: 5A09357 Assistance with Respiratory Ventilation, Less than 24 Consecutive Hours, Continuous Positive Airway Pressure (ICD-10-PCS; principal; 2017-07-31)
PROC: 0BC88ZZ Extirpation of Matter from Left Upper Lobe Bronchus, Via Natural or Artificial Opening Endoscopic (ICD-10-PCS; 2017-08-02)
PROC: 0BC98ZZ Extirpation of Matter from Lingula Bronchus, Via Natural or Artificial Opening Endoscopic (ICD-10-PCS; 2017-08-02)
PROC: 0BCB8ZZ Extirpation of Matter from Left Lower Lobe Bronchus, Via Natural or Artificial Opening Endoscopic (ICD-10-PCS; 2017-08-02)
PROC: 0BC68ZZ Extirpation of Matter from Right Lower Lobe Bronchus, Via Natural or Artificial Opening Endoscopic (ICD-10-PCS; 2017-08-02)
PROC: 0BC48ZZ Extirpation of Matter from Right Upper Lobe Bronchus, Via Natural or Artificial Opening Endoscopic (ICD-10-PCS; 2017-08-02)
PROC: 0BC58ZZ Extirpation of Matter from Right Middle Lobe Bronchus, Via Natural or Artificial Opening Endoscopic (ICD-10-PCS; 2017-08-02)
DX: J96.21 Acute and chronic respiratory failure with hypoxia (principal); J44.0 Chronic obstructive pulmonary disease with (acute) lower respiratory infection; B02.29 Other postherpetic nervous system involvement; J44.1 Chronic obstructive pulmonary disease with (acute) exacerbation; E03.9 Hypothyroidism, unspecified; J20.9 Acute bronchitis, unspecified; E78.2 Mixed hyperlipidemia; G89.29 Other chronic pain; M54.9 Dorsalgia, unspecified; I10 Essential (primary) hypertension; Z88.2 Allergy status to sulfonamides; Z79.899 Other long term (current) drug therapy; Z90.710 Acquired absence of both cervix and uterus